=== PATIENT | female | born 1940 | race Caucasian/White ===

== ENCOUNTER → 2024-09-23 15:03 | Outpatient (REF) | payer MEDICARE, SELFPAY | LOC: CLAB 15:03 | PROVIDERS: ATTENDING PHYSICIAN Otolaryngology | DX: R22.1 Localized swelling, mass and lump, neck (principal) | CPT/HCPCS: 88173 ==

== ENCOUNTER 2024-11-17 19:10 | Emergency (ER) | payer MEDICARE, SELFPAY ==
[2024-11-17 19:12] VITALS: BP 136/65
[2024-11-17 19:30] LABS: % Eosinophils 3.6 % (0-6); % Immature Granulocytes 0.4 % (0-0.5); % Lymphocytes 18.2 % (20.5-51.1); % Monocytes 8.1 % (1.7-9.3); % Neutrophils 68.7 % (42.2-75.2); Absolute Basophils 0.1 10^3/uL (0-0.2); Absolute Eosinophils 0.3 10^3/uL (0-0.7); Absolute Lymphocytes 1.5 10^3/uL (1.2-3.4); Absolute Monocytes 0.7 10^3/uL (0.1-0.6); Absolute Neutrophils 5.5 10^3/uL (1.4-6.5); Hematocrit 35.1 % (37.0-47.0); Hemoglobin 11.4 g/dL (12.0-16.0); Mean Corp Hgb Conc. 32.5 g/dL (33.0-37.0); Mean Corpuscular Volume 86.2 fL (81.0-99.0); Mean Platelet Volume 9.7 fL (7.4-10.4); Nucleated Red Blood Cells % 0 %; Platelet Count 280 10^3/uL (130-400); Red Blood Cell Count 4.07 10^6/uL (4.20-5.40); Red Cell Dist. Width 14.6 % (11.5-14.5)
[2024-11-17 19:43] LABS: ALT (SGPT) 21 U/L (0-35); AST (SGOT) 29 U/L (14-36); Albumin 3.7 g/dl (3.5-5.0); Alkaline Phosphatase 111 U/L (38-126); Blood Urea Nitrogen 28 mg/dl (7-17); Calcium 8.7 mg/dl (8.4-10.2); Carbon Dioxide 23 mmol/L (22-30); Chloride 108 mmol/L (98-107); Glucose 110 mg/dl (70-99); Potassium 4.5 mmol/L (3.5-5.1); Sodium 136 mmol/L (135-145); Total Bilirubin 0.4 mg/dl (0.2-1.3); Total Protein 6.4 g/dl (6.3-8.2); eGFR > 60.00
[2024-11-17 19:48] LABS: Urine Albumin 3+ (Neg - Trace); Urine Bilirubin Negative (Negative); Urine Character Cloudy (Clear); Urine Color Yellow; Urine Glucose Negative (Negative); Urine Ketone Negative (Negative); Urine Leukocyte 2+ (Negative); Urine Nitrite Negative (Negative); Urine Occult Blood 2+ (Negative); Urine Urobilinogen Negative (Neg - 1+)
--- NOTE | 2024-11-17 19:51 | ED.GENMED ---
History of Present Illness
General
Chief Complaint: Abdominal Symptoms
Source: patient
Exam Limitations: none
Time Seen by Provider: 11/17/24 19:45
History of Present Illness
History of Present Illness:
Patient with dysuria for 2 to 3 weeks. No workup to date. Today had relatively sudden onset of mid abdominal pain no frequency. No flank or back pain. A few hours ago. Lasted about 30 minutes. [place] lightheaded with it. Currently resolved.
Some nausea at the time
Past History
Past History
ED Past Medical History: Other (Cerebral palsy/diverticulosis/GI bleed)
ED Past Surgical History: Orthopedic and Other (Right nostril surgery.)
Social History
Living: assisted living
Phy Exam
Physical Exam
Physical Exam:
GENERAL: Alert and oriented in no apparent distress
EYE: Orbits normal.
NECK: Supple
ENT: Pharynx without erythema
CARDIAC: Regular rate and rhythm without any obvious murmurs.
LUNGS: Clear breath sounds,normal
ABDOMEN: Soft, no distention. Bowel sounds present. No focal tenderness rebound or guarding.
NEUROLOGICAL: Alert and oriented , grossly non-focal
SKIN: Warm and dry, no rash or lesion, no discoloration, skin intact.
MUSCULOSKELETAL: No edema,no deformity.Good color
PSYCH: Normal and appropriate interaction.
Course
Orders/Labs/Results
Orders:
Orders
11/17/24 19:16
EKG [Electrocardiogram (*1)] Urgent
Reason for Study: Fatigue / Weakness
11/17/24 19:17
EKG- Treatment ONCE
11/17/24 19:20
Complete Blood Count/With Diff Urgent
Comprehensive Metabolic Panel Urgent
Lipase Urgent
Comment: ADD ON
Urinalysis Reflex To Culture Urgent
Date Specimen was Collected: 11/17/24
Time Specimen was Collected: 19:17
Urine Microscopic Reflex Cult Urgent
Urine Culture Urgent
MESHA Source: U
Specimen Description:
Date Specimen was Collected: 11/17/24
Time Specimen was Collected: 19:17
11/17/24 19:50
Add On- LAB Urgent
Tests Added?: lipase
11/17/24 21:42
CT Abd/Pel (IV only)-DH only Urgent
Comment:
Reason For Exam: Mid abdominal pain
11/17/24 22:35
CefTRIAXone [Rocephin] 1,000 mg IV NOW STA
Abnormal Lab Results
11/17/24
19:20
RBC 4.07 L 10^6/uL
(4.20-5.40)
Hgb 11.4 L g/dL
(12.0-16.0)
Hct 35.1 L %
(37.0-47.0)
MCHC 32.5 L g/dL
(33.0-37.0)
RDW 14.6 H %
(11.5-14.5)
Absolute Monos (auto) 0.7 H 10^3/uL
(0.1-0.6)
Lymphocytes % 18.2 L %
(20.5-51.1)
Chloride 108 H mmol/L
(98-107)
BUN 28 H mg/dl
(7-17)
Glucose 110 H mg/dl
(70-99)
Ur Occult Blood Reflex 2+ A
(Negative)
Leukocyte Esterase Rfl 2+ A
(Negative)
Urine Bacteria (Reflex) Many A
(Negative)
Urine Albumin (Reflex) 3+ A
(Neg - Trace)
11/17/24 19:20
11/17/24 19:20
Vital Signs
Initial and Last Documented VS:
Initial Vital Signs
Temp Pulse Resp BP Pulse Ox
97.4 F 62 18 136/65 97
11/17/24 19:12 11/17/24 19:12 11/17/24 19:12 11/17/24 19:12 11/17/24 19:12
Last Documented Vital Signs
Temp Pulse Resp BP Pulse Ox
97.4 F 80 15 139/64 94
11/17/24 19:12 11/17/24 22:10 11/17/24 21:45 11/17/24 21:00 11/17/24 21:45
MDM/Problems Addressed
Differential Diagnosis Includes:
Patient with weeks of urinary running. Transient mid abdominal pain. Clinically stable and nontoxic at this time. Labs are stable. Await urine. CT scan pending.
*Radiology
Radiology exam reviewed: radiology read reviewed (Negative CT)
*Pulse Oximetry
Patient hypoxic: no (97% room air)
*Critical Care Note
Total Time (30-74mins, 75-104mins- exclusive of procedures): Not Applicable
Update Note
Update Note:
Patient is remained stable nontoxic. In no distress. No abdominal pain. CT unremarkable. Likely UTI.
ED Attending Note
-
Portions of this chart may have been created with voice recognition software.� Occasional wrong word or��sound alike� substitutions may have occurred due to the inherent limitations of voice recognition software.
Discharge Plan
Departure
Patient Disposition: Home (Routine Discharge)
Date of Disposition: 11/17/24
Time of Disposition: 22:36
Patient with high blood pressure during this ER visit?: Yes
Discharge Problem:
UTI, Resolved abdominal pain
Instructions: Urinary Tract Infection, Adult (DC), Abdominal Pain, BLOOD PRESSURE
Prescriptions:
New
cefdinir 300 mg capsule
300 mg PO BID 7 Days Qty: 14 0RF
No Action
loperamide [Imodium] 2 mg Capsule
2 mg PO Q4H PRN (Reason: constipation)
acetaminophen [Tylenol Extra Strength] 500 mg Tablet
1,000 mg PO Q6H PRN (Reason: pain)
ketoconazole 2 % Cream
1 applic TOPICAL DAILY
Referrals:
KHOI ORTEGA MD [Family Provider, Internal Medicine] - Follow up in 2-3 days
Activity Restrictions/Additional Instructions:
Start the oral antibiotics tomorrow night
Prescription was sent to your pharmacy
Interventions
Interventions:
*Risk Screen - Suicide Last Done: 11/17/24 19:16
*General Assessment Last Done: 11/17/24 19:16
*Neglect/Abuse Screening Last Done: 11/17/24 19:16
*ED- Fall Risk Assessment Last Done: 11/17/24 21:22
*ED COVID-19 Vaccine History Last Done: 11/17/24 19:16
SV-Fnmxwy-Jtntahrkjb Assessment Last Done: 11/17/24 19:32
ED-Female Genitourinary Assessment Last Done: 11/17/24 19:32
Discharge Date and Time
Print Language: CYPRIOT
[2024-11-17 20:09] LABS: Lipase 92 U/L (23-300)
[2024-11-17 20:32] LABS: Urine Bacteria Many (Negative); Urine Red Blood Cell 0-2 /HPF (0-2); Urine Squamous Cell 0-2 /LPF (Few); Urine Triple Phosphate Crystal Present
[2024-11-17 21:00] VITALS: BP 139/64
[2024-11-17] MEDS: ROCEPHIN 1000 MG IV (22:51)
[2024-11-17 22:53] VITALS: BP 146/90
--- NOTE | 2024-11-17 22:57 | ED.GENMED ---
History of Present Illness
General
Chief Complaint: Abdominal Symptoms
Time Seen by Provider: 11/17/24 19:45
Past History
Past History
ED Past Medical History: Other (Cerebral palsy/diverticulosis/GI bleed)
ED Past Surgical History: Orthopedic and Other (Right nostril surgery.)
Social History
Living: assisted living
Course
Orders/Labs/Results
Orders:
Orders
11/17/24 19:16
EKG [Electrocardiogram (*1)] Urgent
Reason for Study: Fatigue / Weakness
11/17/24 19:17
EKG- Treatment ONCE
11/17/24 19:20
Complete Blood Count/With Diff Urgent
Comprehensive Metabolic Panel Urgent
Lipase Urgent
Comment: ADD ON
Urinalysis Reflex To Culture Urgent
Date Specimen was Collected: 11/17/24
Time Specimen was Collected: 19:17
Urine Microscopic Reflex Cult Urgent
Urine Culture Urgent
MESHA Source: U
Specimen Description:
Date Specimen was Collected: 11/17/24
Time Specimen was Collected: 19:17
11/17/24 19:50
Add On- LAB Urgent
Tests Added?: lipase
11/17/24 21:42
CT Abd/Pel (IV only)-[facility] only Urgent
Comment:
Reason For Exam: Mid abdominal pain
11/17/24 22:35
CefTRIAXone [Rocephin] 1,000 mg IV NOW STA
Abnormal Lab Results
11/17/24
19:20
RBC 4.07 L 10^6/uL
(4.20-5.40)
Hgb 11.4 L g/dL
(12.0-16.0)
Hct 35.1 L %
(37.0-47.0)
MCHC 32.5 L g/dL
(33.0-37.0)
RDW 14.6 H %
(11.5-14.5)
Absolute Monos (auto) 0.7 H 10^3/uL
(0.1-0.6)
Lymphocytes % 18.2 L %
(20.5-51.1)
Chloride 108 H mmol/L
(98-107)
BUN 28 H mg/dl
(7-17)
Glucose 110 H mg/dl
(70-99)
Ur Occult Blood Reflex 2+ A
(Negative)
Leukocyte Esterase Rfl 2+ A
(Negative)
Urine Bacteria (Reflex) Many A
(Negative)
Urine Albumin (Reflex) 3+ A
(Neg - Trace)
11/17/24 19:20
11/17/24 19:20
Vital Signs
Initial and Last Documented VS:
Initial Vital Signs
Temp Pulse Resp BP Pulse Ox
97.4 F 62 18 136/65 97
11/17/24 19:12 11/17/24 19:12 11/17/24 19:12 11/17/24 19:12 11/17/24 19:12
Last Documented Vital Signs
Temp Pulse Resp BP Pulse Ox
97.4 F 80 15 139/64 94
11/17/24 19:12 11/17/24 22:10 11/17/24 21:45 11/17/24 21:00 11/17/24 21:45
Update Note
Update Note:
Talk to the pediatric [employer]. Will cover with antibiotics pending culture. Keflex.
ED Attending Note
-
Portions of this chart may have been created with voice recognition software.� Occasional wrong word or��sound alike� substitutions may have occurred due to the inherent limitations of voice recognition software.
Discharge Plan
Departure
Patient Disposition: Home (Routine Discharge)
Date of Disposition: 11/17/24
Time of Disposition: 22:36
Patient with high blood pressure during this ER visit?: Yes
Discharge Problem:
UTI, Resolved abdominal pain
Instructions: Urinary Tract Infection, Adult (DC), Abdominal Pain, BLOOD PRESSURE
Prescriptions:
New
cefdinir 300 mg capsule
300 mg PO BID 7 Days Qty: 14 0RF
No Action
loperamide [Imodium] 2 mg Capsule
2 mg PO Q4H PRN (Reason: constipation)
acetaminophen [Tylenol Extra Strength] 500 mg Tablet
1,000 mg PO Q6H PRN (Reason: pain)
ketoconazole 2 % Cream
1 applic TOPICAL DAILY
Referrals:
KHOI ORTEGA MD [Family Provider, Internal Medicine] - Follow up in 2-3 days
Activity Restrictions/Additional Instructions:
Start the oral antibiotics tomorrow night
Prescription was sent to your pharmacy
Interventions
Interventions:
*Risk Screen - Suicide Last Done: 11/17/24 19:16
*General Assessment Last Done: 11/17/24 19:16
*Neglect/Abuse Screening Last Done: 11/17/24 19:16
*ED- Fall Risk Assessment Last Done: 11/17/24 21:22
*ED COVID-19 Vaccine History Last Done: 11/17/24 19:16
BF-[place]-Tfobpruwdn Assessment Last Done: 11/17/24 19:32
ED-Female Genitourinary Assessment Last Done: 11/17/24 19:32
Discharge Date and Time
Print Language: MOROCCAN
[2024-11-17 23:00] VITALS: BP 129/80
[2024-11-18] VITALS: BP 121/80; BP 122/68
[2024-11-18 01:00] VITALS: BP 151/68
[2024-11-18 02:00] VITALS: BP 119/76
[2024-11-18 02:51] VITALS: BP 122/63
== END 2024-11-18 02:30 | disposition home or self-care (01) ==
LOC: EMR 19:10
PROVIDERS: EMERGENCY PHYSICIAN Emergency Medicine; FAMILY PHYSICIAN Internal Medicine
DX: N39.0 Urinary tract infection, site not specified (principal); R10.9 Unspecified abdominal pain; G80.8 Other cerebral palsy
CPT/HCPCS: 99284; 74177; 80053; 81003; 81015; 83690; 85025; 87086; 93005; Q9967

== ENCOUNTER → 2025-01-08 17:03 | Outpatient (REF) | payer MEDICARE, SELFPAY | LOC: CLAB 17:03 | PROVIDERS: ATTENDING PHYSICIAN Otolaryngology | DX: R22.0 Localized swelling, mass and lump, head (principal) | CPT/HCPCS: 88173 ==

== ENCOUNTER 2025-05-03 18:59 | Emergency (ER) | payer MEDICARE, SELFPAY ==
[2025-05-03 19:06] VITALS: BP 138/73
[2025-05-03 20:05] VITALS: BMI 16.3
--- NOTE | 2025-05-03 21:22 | ED.MUSCINJ ---
HPI-Injury
General
Chief Complaint: Musculo-Skeletal Complaint
Source: patient
Exam Limitations: none
Time Seen by Provider: 05/03/25 19:39
Nursing documentation reviewed up to this point in time: agreed with
History of Present Illness-Injury
Is this injury a work related problem?: No
Is pt an associate of [facility]/[place]?: No
Initial Injury comments:
Patient to the emergency department from skilled facility with complaint of pain to left lower anterior leg. She states that she hit her leg on the edge of the bed while transferring from wheelchair to bed. Being assisted at the time by an aide.
She reports worsening pain to the leg. She was brought to the emergency department by EMS for evaluation incident occurred this afternoon.
Past History
Past History
ED Past Medical History: Other (Cerebral palsy/diverticulosis/GI bleed)
ED Past Surgical History: Orthopedic and Other (Right nostril surgery.)
Social History
Living: assisted living
Review of Systems
Review of Systems
Allergies reviewed?: Yes
All Other Systems: ROS reviewed and negative except as documented in HPI and ROS
Constitutional: Reports no symptoms
Musculoskeletal: Reports joint pain (Pain to left lower anterior leg)
Skin: Reports no symptoms
Neurological: Reports no symptoms
Psychiatric: Reports no symptoms
Musculoskeletal Injury Exam
Musculoskeletal Injury Exam
Left Lower Anterior Leg:
Pain with Movement?: Moderate
Tender to palpation?: Moderate
Soft tissue swelling?: None
External deformity and angulation?: None
Joint effusion?: None
Contusion?: Moderate
Hematoma-local bleeding into tissue?: None
Strain- Sprain- Tear (Connective tissue injury)?: None
Crepitus with movement?: No
Joint instability?: No
Malalignment/deformity?: No
Range of motion: Limited
Distal skin color and temperature: normal-warm & good color
Capillary Refill: normal
Normal distal neurovascular exam?: Yes
Peripheral Pulses: posterior tibial (left): 3+ and dorsalis pedis (left): 3+
Phy Exam
General Physical Exam
General Presentation: well appearing and no apparent distress
General age: appears stated age
General Skin: warm and dry
General Habitus: normal
Musculoskeletal Exam
Musculoskeletal Exam: neuro vasc intact and other (No bruising or swelling noted to left lower leg. Leg is neurovascularly intact)
Skin Exam
Skin Exam: normal color, warm/dry and no rash
Psychiatric Exam
Psychiatric Exam: normal mood/affect
Injury Course
Orders/Labs/Results
Orders:
Orders
05/03/25 19:07
CR Leg Tibia/fibula Left 2 Vw Urgent
Comment:
Reason For Exam: injury
*Radiology
Radiology exam reviewed: radiology read reviewed
*Pulse Oximetry
SaO2: 90
Oxygen Mode of Delivery: Room air
Patient hypoxic: no
*Critical Care Note
Total Time (30-74mins, 75-104mins- exclusive of procedures): Not Applicable
Update Note
Update Note:
Patient to emergency department for evaluation of pain to left lower anterior leg. She states she was being assisted in a transfer from her wheelchair to the bed and hit her leg against the bed. There is no redness swelling or bruising to the leg.
Leg is neurovascularly intact. X-ray reviewed no evidence of fracture noted. She will be discharged back to the nursing facility. She was instructed to elevate leg when she can, apply ice 15 to 20 minutes at a time, 4-5 times daily as needed for
comfort. Follow-up with PCP in 1 to 2 days.
ED Attending Note
-
Portions of this chart may have been created with voice recognition software.� Occasional wrong word or��sound alike� substitutions may have occurred due to the inherent limitations of voice recognition software.
Discharge Plan
Departure
Patient Disposition: Home (Routine Discharge)
Date of Disposition: 05/03/25
Time of Disposition: 21:15
Patient with high blood pressure during this ER visit?: No
Condition: Fair
Covid-19: Not Applicable
Discharge Problem:
Contusion of left leg
Instructions: Contusion (DC), Using Cold for Pain
Prescriptions:
No Action
loperamide [Imodium] 2 mg Capsule
2 mg PO Q4H PRN (Reason: constipation)
acetaminophen [Tylenol Extra Strength] 500 mg Tablet
1,000 mg PO Q6H PRN (Reason: pain)
ketoconazole 2 % Cream
1 applic TOPICAL DAILY
cefdinir 300 mg capsule
300 mg PO BID 7 Days Qty: 14 0RF
Referrals:
Ruchi Sharma, DO [Family Provider] - Follow up in 2-3 days
Activity Restrictions/Additional Instructions:
Apply ice 15 to 20 minutes at a time 4-5 times a day as needed for comfort. Please wrap ice bag and a tail before applying to the leg.
Interventions
Interventions:
*General Assessment Last Done: 05/03/25 19:04
*Neglect/Abuse Screening Last Done: 05/03/25 20:05
*ED- Fall Risk Assessment Last Done: 05/03/25 20:05
*ED COVID-19 Vaccine History Last Done: 05/03/25 20:05
*ED Influenza Vaccine History Last Done: 05/03/25 20:05
ED-Musculoskeletal Assessment Last Done: 05/03/25 20:05
Discharge Date and Time
Print Language: ANDORRAN
[2025-05-03] MEDS: TYLENOL 650 MG PO (22:17)
== END 2025-05-03 23:17 ==
LOC: EMR 18:59
PROVIDERS: EMERGENCY PHYSICIAN Student in an Organized Health Care Education/Training Program; FAMILY PHYSICIAN Family Medicine
DX: S80.12XA Contusion of left lower leg, initial encounter (principal); W22.09XA Striking against other stationary object, initial encounter; G80.8 Other cerebral palsy
CPT/HCPCS: 99283; 73590